=== PATIENT | female | born 1970 | race Caucasian/White ===

== ENCOUNTER 2018-11-14 10:58 | Emergency (ER) | payer OTHER ==
[2018-11-14] MEDS: IBUPROFEN 600 MG TAB PO (11:18)
== END 2018-11-14 12:40 | disposition home or self-care (01) ==
LOC: FTE 10:58
DX: S69.91XA Unspecified injury of right wrist, hand and finger(s), initial encounter (principal); X58.XXXA Exposure to other specified factors, initial encounter; Y92.9 Unspecified place or not applicable; Z79.82 Long term (current) use of aspirin; Z87.891 Personal history of nicotine dependence
CPT/HCPCS: 29125; 73110-RT; 99283-25